=== PATIENT | male | born 1970 | race Caucasian/White ===

== ENCOUNTER → 2023-06-24 06:35 | Outpatient (REF) | payer OTHER, SELFPAY | LOC: RCS 06:35 | PROVIDERS: ATTENDING PHYSICIAN Nurse Practitioner; FAMILY PHYSICIAN Family Medicine | DX: R06.09 Other forms of dyspnea (principal) | CPT/HCPCS: 78452; 93017; A9500 ==

== ENCOUNTER 2023-07-02 06:18 | Day surgery (SDC) | payer OTHER, SELFPAY ==
[2023-07-02] VITALS (12 sets, daily range): BP systolic 98–132; BP diastolic 67–87; BMI 27.0
[2023-07-02] MEDS: NSS 318 ML IV (07:09)
--- NOTE | 2023-07-02 07:41 | ITS.CL.CATH ---
[employer] - Catheterization
Cardiac Catheterization
Procedure Report:
CARDIAC CATHETERIZATION REPORT
Date of Procedure: 07/02/2023
Referring: Dom Loja MD
Indication: Progressive exertional dyspnea with mildly abnormal nuclear stress test 12 months following circumflex stenting for non-STEMI
HEMODYNAMIC DATA
AO: 105/68
LV: 105/16
LEFT VENTRICULOGRAPHY: Normal left ventricular wall motion. An ejection fraction could not be calculated due to ventricular ectopy but is clearly within the normal range
CORONARY ANGIOGRAPHY
Dominance: Right
Left Main: Normal
LAD: 30% mid LAD stenosis. There is a 70% apical LAD lesion-this lesion is within 20 mm of the terminus of the LAD with very little myocardium at risk and appears improved compared with the prior study from June 2022. The huge first diagonal
branch is angiographically free of disease
Circumflex: There is a widely patent mid circumflex stent (ALEXEY June 2022) extending into the large OM 2. There is no restenosis within the stented segment. The remainder of the circumflex system has trivial luminal disease
RCA: The RCA is a large dominant vessel. 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 There are mild luminal irregularities in the proximal, mid, and distal RCA. The RPDA has relatively small with distal
tapering. The RCA terminates with a very large posterolateral system and there are trivial luminal irregularities in the AV groove branch and in the three posterolateral branches.
Closure Device: None-the procedure was performed via the left radial artery. The Maikol's test was normal prior to the procedure. Of note, there was no palpable right radial artery pulse
Radiation (mGy): 477
DAP (cm2.Gy): 40.5
Fluoroscopy time: 6.6 minutes
CONCLUSIONS
1: Normal left ventricular function
2: CAD as described-the circumflex stent placed 1 year ago is widely patent and there has been no progression of disease elsewhere. The apical LAD lesion is clinically insignificant
3. Continue risk factor modification and aspirin. We will stop Brilinta as it has been 1 year since his PCI and Brilinta may actually be the culprit for his dyspnea
4. If symptoms of exertional dyspnea persist he will need pulmonary evaluation
Copy to: Diane Garcia MD, Dom Loja MD
Nam Rossi MD, FACC, [facility]
[2023-07-02] MEDS: NSS 1000 IV (09:18)
== END 2023-07-02 11:20 | disposition home or self-care (01) ==
LOC: CATH 06:18
PROVIDERS: ATTENDING PHYSICIAN Internal Medicine Cardiovascular Disease; FAMILY PHYSICIAN Family Medicine; OTHER PHYSICIAN Internal Medicine Cardiovascular Disease
DX: I25.10 Atherosclerotic heart disease of native coronary artery without angina pectoris (principal); R06.09 Other forms of dyspnea; I25.2 Old myocardial infarction; Z95.5 Presence of coronary angioplasty implant and graft; Z79.82 Long term (current) use of aspirin
CPT/HCPCS: 93458; C1894; Q9967

== ENCOUNTER → 2023-08-24 12:00 | Outpatient (REF) | payer OTHER, SELFPAY | LOC: RAD 12:00 | PROVIDERS: ATTENDING PHYSICIAN Family Medicine; FAMILY PHYSICIAN Family Medicine | DX: M79.674 Pain in right toe(s) (principal); S91.209A Unspecified open wound of unspecified toe(s) with damage to nail, initial encounter | CPT/HCPCS: 73660 ==

== ENCOUNTER → 2024-05-19 14:31 | Outpatient (REF) | payer OTHER, SELFPAY | LOC: RAD 14:31 | PROVIDERS: ATTENDING PHYSICIAN Family Medicine | DX: R05.1 Acute cough (principal) | CPT/HCPCS: 71046 ==

== ENCOUNTER → 2024-07-11 08:04 | Outpatient (REF) | payer OTHER, SELFPAY | LOC: RCS 08:04 | PROVIDERS: ATTENDING PHYSICIAN Internal Medicine Cardiovascular Disease; FAMILY PHYSICIAN Family Medicine | DX: I25.10 Atherosclerotic heart disease of native coronary artery without angina pectoris (principal); R06.09 Other forms of dyspnea | CPT/HCPCS: 93306 ==